=== PATIENT | female | born 1995 | race Caucasian/White ===

== ENCOUNTER 2019-12-18 20:40 | Emergency (ER) | payer SELFPAY ==
[~2019-12-18] VITALS: Ht 170.2 cm; Wt 82.0 kg
[2019-12-19 03:32] VITALS: BP 111/74
== END 2019-12-19 03:34 | disposition home or self-care (01) ==
LOC: ER 20:40
DX: T51.0X1A Toxic effect of ethanol, accidental (unintentional), initial encounter (principal); F10.129 Alcohol abuse with intoxication, unspecified; Y90.0 Blood alcohol level of less than 20 mg/100 ml; Y92.89 Other specified places as the place of occurrence of the external cause
CPT/HCPCS: 81025; 99283; Z7610